=== PATIENT | female | born 1985 | race Caucasian/White ===

== ENCOUNTER 2017-09-22 05:30 | Emergency (ER) | payer MEDICAID ==
[~2017-09-22] VITALS: Ht 149.9 cm; Wt 63.7 kg
[2017-09-22 05:36] VITALS: BP 124/77
--- NOTE | 2017-09-22 05:39 | NUR ---
Patient ambulated to bed 3. RN evaluating patient at bedside.
--- NOTE | 2017-09-22 05:42 | NUR ---
Dr. Inman evaluating patient at bedside.
[2017-09-22] MEDS ORDERED: methylPREDNISolone SS 125 MG in WATER STERILE 2 ML IM ONE (05:45)
[2017-09-22] MEDS ORDERED: ALBUTEROL SULFATE/IPRATROPIU 3 ML SOL IH ONE (05:45)
--- NOTE | 2017-09-22 05:45 | NUR ---
32Y/F PT. PRESENTS TO ED WITH C/O SOB X 1 WK. PT. HX. ASTHMA, HAVING EPISODE OF SOB X 1 WK. AAO X4, AMBULATORY WITH STEDAY GAIT. RESIRATIONS ROOM AIR, LABORED, IRREGULAR, BL LUNG WHEEZES, O2 SAT 99%. VSS, ER MD MADE AWARE OF PT. STATUS.
--- NOTE | 2017-09-22 05:52 | NUR ---
Breathing treatment administered at bedside by respiratory therapist.
--- NOTE | 2017-09-22 06:07 | NUR ---
Dr. Inman re-evaluating patient at bedside.
[2017-09-22 06:19] VITALS: BP 115/70
--- NOTE | 2017-09-22 06:19 | NUR ---
Patient discharged with v/s stable. Written and verbal after care instructions given and explained. Patient alert, oriented and verbalized understanding of instructions. Ambulatory with steady gait. All questions addressed prior to discharge. ID band removed. Patient advised to follow up with PMD. Rx of ALBUTEROL 90 MCG/ACTUATION, PREDNISONE 20 MG, AZITHROMYCIN 500 MG, LEVALBUTEROL 1.25 MG/3 ML given. Patient educated on indication of medication including possible reaction and side effects. Opportunity to ask questions provided and answered.
== END 2017-09-22 06:19 | disposition home or self-care (01) ==
LOC: MED 05:30
DX: J45.901 Unspecified asthma with (acute) exacerbation (principal); J06.9 Acute upper respiratory infection, unspecified
CPT/HCPCS: 94640; 96372; 99283; J2930; J7620

== ENCOUNTER 2018-08-13 18:09 | Emergency (ER) | payer MEDICAID ==
[~2018-08-13] VITALS: Ht 149.9 cm; Wt 64.5 kg
[2018-08-13 18:15] VITALS: BP 112/71
--- NOTE | 2018-08-13 18:22 | NUR ---
PT AMBULATES TO BED 12
--- NOTE | 2018-08-13 18:23 | NUR ---
BIB SELF. C/O SOB TODAY RUN OUT OF INHALER; INCREASED WOB WITH ACCESSORY MUSCLE USE AND SLIGHT EXPIRATORY WHZ. DENIES N/V/D; SKIN IS PINK/WARM/DRY; AAOX4 WITH EVEN AND STEADY GAIT; LUNGS CLEAR BL; HR EVEN AND REGULAR; PT DENIES ANY FEVER, CP, OR COUGH AT THIS TIME; PATIENT STATES PAIN OF 0/10 AT THIS TIME; VSS; PATIENT POSITIONED FOR COMFORT; HOB ELEVATED; BEDRAILS UP X2; BED DOWN. ER MD MADE AWARE OF PT STATUS.
[2018-08-13] MEDS ORDERED: IPRATROPIUM 0.02% 0.5 MG/2.5 ML NEBU INH ONE (18:35)
[2018-08-13] MEDS ORDERED: predniSONE 20 MG TAB PO ONE (18:35)
[2018-08-13] MEDS ORDERED: ALBUTEROL 0.083% 2.5 MG/3 ML NEBU INH ONE (18:35)
--- NOTE | 2018-08-13 18:41 | NUR ---
RT AT BEDSIDE
--- NOTE | 2018-08-13 19:44 | NUR ---
Patient discharged with v/s stable. Written and verbal after care instructions given and explained. Patient alert, oriented and verbalized understanding of instructions. Ambulatory with steady gait. All questions addressed prior to discharge. ID band removed. Patient advised to follow up with PMD. Rx of ALBUTEROL, PREDNISONE, AND ALBUTEROL SULFATE SOLUTION WERE given. Patient educated on indication of medication including possible reaction and side effects. Opportunity to ask questions provided and answered.
[2018-08-13 19:45] VITALS: BP 137/71
== END 2018-08-13 19:44 | disposition home or self-care (01) ==
LOC: MED 18:09
DX: J45.901 Unspecified asthma with (acute) exacerbation (principal)
CPT/HCPCS: 94640; 99283; J7512; J7613; J7644

== ENCOUNTER 2019-01-19 10:34 | Emergency (ER) | payer MEDICAID ==
[~2019-01-19] VITALS: Ht 149.9 cm; Wt 62.8 kg
[2019-01-19 10:43] VITALS: BP 109/43
--- NOTE | 2019-01-19 10:53 | NUR ---
Patient ambulated to chair E. RN evaluating patient at bedside.
[2019-01-19] MEDS ORDERED: ALBUTEROL SULFATE/IPRATROPIU 3 ML SOL IH ONE (10:55)
--- NOTE | 2019-01-19 10:55 | NUR ---
PT BIB SELF C/O SOB started last night, wheezing noted to BILAT lobes. RT CALLED, PT DENIES N/V/D; SKIN IS INTACT, PINK/WARM/DRY; AAOX4, PERRL, WITH EVEN AND STEADY GAIT. BL PERIPHERAL PULSES PRESENT; BS ACTIVE X4, NO TENDERNESS TO PALPATION. PT DENIES ANY FEVER, CP AT THIS TIME; PT STATES 0/10 PAIN AT THIS TIME; VSS; PATIENT POSITIONED FOR COMFORT; HOB ELEVATED; BEDRAILS UP X2; BED DOWN.
--- NOTE | 2019-01-19 11:07 | NUR ---
Breathing treatment administered in OF by respiratory therapist.
[2019-01-19] MEDS ORDERED: predniSONE 20 MG TAB PO ONE (11:20)
--- NOTE | 2019-01-19 11:32 | NUR ---
Patient returned from XRAY, transferred to bed 2 for further care. RN evaluating patient at bedside.
[2019-01-19] MEDS ORDERED: ALBUTEROL 0.083% 2.5 MG/3 ML NEBU INH ONE (12:40)
[2019-01-19 15:45] VITALS: BP 119/79
--- NOTE | 2019-01-19 15:45 | NUR ---
Patient discharged with v/s stable. Written and verbal after care instructions given and explained. Patient alert, oriented and verbalized understanding of instructions. Ambulatory with steady gait. All questions addressed prior to discharge. ID band removed. Patient advised to follow up with PMD. Rx of ALBUTEROL 90MCG AND PREDNISONE 50MG given. Patient educated on indication of medication including possible reaction and side effects. Opportunity to ask questions provided and answered.
== END 2019-01-19 15:45 | disposition home or self-care (01) ==
LOC: MED 10:34
DX: J45.901 Unspecified asthma with (acute) exacerbation (principal)
CPT/HCPCS: 71046; 81002; 81025; 94640; 99284; J7512; J7613; J7620

== ENCOUNTER 2019-08-13 10:51 | Emergency (ER) | payer MEDICAID ==
[~2019-08-13] VITALS: Ht 148.6 cm; Wt 66.7 kg
[2019-08-13 11:00] VITALS: BP 93/67
--- NOTE | 2019-08-13 11:26 | NUR ---
C/O ASTHMA ATTACKS AT NIGHTTIME X 2 DAYS. RAN OUT OF ALBUTEROL AT HOME. ASTHMA ATTACKS TRIGGERED BY COLD AIR AND SMOKE- PT [place]. STATES ONLY MILD SOB NOW. NO WHEEZING NOTED. ALSO C/O COUGH WITH PRODUCTIVE SPUTUM CLEAR WHITE. PAIN IN THROAT WITH COUGHING. PATIENT STATES PAIN OF 4/10 AT THIS TIME.PATIENT POSITIONED FOR COMFORT; HOB ELEVATED; BEDRAILS UP X1; BED DOWN. ER MD MADE AWARE OF PT STATUS.
[2019-08-13] MEDS ORDERED: ALBUTEROL SULFATE/IPRATROPIU 3 ML SOL IH ONE (11:35)
[2019-08-13] MEDS ORDERED: DEXAMETHASONE 10 MG/ML VIAL IM ONE (11:35)
[2019-08-13 12:22] VITALS: BP 93/67
== END 2019-08-13 12:22 | disposition home or self-care (01) ==
LOC: MED 10:51
DX: J45.901 Unspecified asthma with (acute) exacerbation (principal)
CPT/HCPCS: 94640; 96372; 99283; J1100; J7620

== ENCOUNTER 2019-08-26 08:27 | Emergency (ER) | payer MEDICAID ==
[~2019-08-26] VITALS: Ht 149.9 cm; Wt 66.8 kg
[2019-08-26 08:30] VITALS: BP 143/83
--- NOTE | 2019-08-26 08:33 | NUR ---
Patient ambulated to bed 3. RN evaluating patient at bedside.
--- NOTE | 2019-08-26 08:34 | NUR ---
PT ARRIVED TO ED C/O SOB X 2 DAYS. LUNG SOUNDS ARE WHEEZING THROUGHOUT ON INSPIRATION AND EXPIRATION. DRY COUGH PRESENT. VSS. NO FEVER. A &O X 4. SOB OF BREATH WEHN SPEAKING SHORT SENTENCES. NO USE OF ACCESSORY MUSCLES. SPO2 97% RA. NKA. PMH: ASTHMA, SHINGLES.
[2019-08-26] MEDS ORDERED: methylPREDNISolone SS 125 MG/2 ML VIAL IM ONE (08:40)
[2019-08-26] MEDS ORDERED: ALBUTEROL SULFATE/IPRATROPIU 3 ML SOL IH ONE (08:40)
--- NOTE | 2019-08-26 08:43 | NUR ---
Breathing treatment administered at bedside by respiratory therapist.
--- NOTE | 2019-08-26 08:49 | NUR ---
RT AT BEDSIDE.
--- NOTE | 2019-08-26 09:01 | NUR ---
REEVAL FROM BREATHING TREATMENT. LUNG SOUNDS CLEAR THROUGHOUT.
[2019-08-26 09:20] VITALS: BP 143/83
--- NOTE | 2019-08-26 09:20 | NUR ---
Patient discharged with v/s stable. Written and verbal after care instructions given and explained. Patient alert, oriented and verbalized understanding of instructions. Ambulatory with steady gait. All questions addressed prior to discharge. ID band removed. Patient advised to follow up with PMD. Rx of ALBUTEROL, AND PREDNISONE given. Patient educated on indication of medication including possible reaction and side effects. Opportunity to ask questions provided and answered.
== END 2019-08-26 09:20 | disposition home or self-care (01) ==
LOC: MED 08:27
DX: J45.901 Unspecified asthma with (acute) exacerbation (principal)
CPT/HCPCS: 94640; 96372; 99283; J2930; J7620

== ENCOUNTER 2019-11-10 16:39 | Emergency (ER) | payer MEDICAID ==
[~2019-11-10] VITALS: Ht 149.9 cm; Wt 67.1 kg
[2019-11-10 16:45] VITALS: BP 119/73
--- NOTE | 2019-11-10 16:49 | NUR ---
PT TO BED 11 WITH STEADY GAIT
--- NOTE | 2019-11-10 17:00 | NUR ---
34/F PRESENTS TO ED, C/O PAIN ON R CHEEK/R SIDE OF LOWER FACE, SINCE YESTERDAY AFTER EATING. NO OBVIOUS SWELLING NOTED. MILD CAVITIES NOTED. DENIES FEVER/CHILLS, N/V. PT AWAKE AND ALERT, SKIN NORMAL COLOR WARM AND DRY, RR EVEN AND UNLABORED. HX ASTHMA RX INHALERS OTC BENADRYL AND OTC PAIN MED, WITHOUT RELIEF
[2019-11-10] MEDS ORDERED: KETOROLAC 30 MG/ML VIAL IM ONE (17:10)
[2019-11-10 17:33] VITALS: BP 119/73
--- NOTE | 2019-11-10 17:33 | NUR ---
Patient discharged with v/s stable. Written and verbal after care instructions given and explained. Patient alert, oriented and verbalized understanding of instructions. Ambulatory with steady gait. All questions addressed prior to discharge. ID band removed. Patient advised to follow up with PMD. Rx of PREDISONE, NAPROXEN given. Patient educated on indication of medication including possible reaction and side effects. Opportunity to ask questions provided and answered.
== END 2019-11-10 17:33 | disposition home or self-care (01) ==
LOC: MED 16:39
DX: M26.621 Arthralgia of right temporomandibular joint (principal); J45.909 Unspecified asthma, uncomplicated
CPT/HCPCS: 96372; 99283; J1885

== ENCOUNTER 2020-01-26 17:31 | Emergency (ER) | payer MEDICAID ==
[~2020-01-26] VITALS: Ht 149.9 cm; Wt 65.8 kg
[2020-01-26 17:38] VITALS: BP 124/85
--- NOTE | 2020-01-26 17:40 | NUR ---
PT EVALUATED BY PHOEBE HARRIS IN TENT, STATES IT IS OK TO PLACE IN BED 11. PT AMBULATED TO BED 11
--- NOTE | 2020-01-26 17:50 | NUR ---
C/O SOB X2 DAYS. PT REPORTS HX OF ASTHMA AND RAN OUT OF NEBULIZER SOLUTION AT HOME. BREATHING IS SLIGHTLY LABORED AND DEEP. LUNG SOUNDS CAEBL, O2 SAT 96% RA. BED IN LOW POSITION, SIDE RAIL UP X1.
[2020-01-26] MEDS ORDERED: WATER STERILE 10 ML MC ONE (18:14)
[2020-01-26] MEDS ORDERED: methylPREDNISolone SS 125 MG/2 ML VIAL ONE (18:14)
[2020-01-26] MEDS: methylPREDNISolone SS 125 MG in WATER STERILE 2 ML IM ONE (18:21)
--- NOTE | 2020-01-26 18:53 | NUR ---
Patient discharged with v/s stable. Written and verbal after care instructions given and explained. Patient alert, oriented and verbalized understanding of instructions. Ambulatory with steady gait. All questions addressed prior to discharge. ID band removed. Patient advised to follow up with PMD. Rx of ALBUTEROL SOLUTION, VENTOLIN, AND PREDNISONE given. Patient educated on indication of medication including possible reaction and side effects. Opportunity to ask questions provided and answered.
[2020-01-26 18:54] VITALS: BP 124/85
== END 2020-01-26 18:54 | disposition home or self-care (01) ==
LOC: MED 17:31
DX: J98.01 Acute bronchospasm (principal); J45.909 Unspecified asthma, uncomplicated
CPT/HCPCS: 96372; 99283; J2930

== ENCOUNTER 2020-08-20 17:41 | Emergency (ER) | payer MEDICAID ==
[~2020-08-20] VITALS: Ht 149.9 cm; Wt 63.5 kg
[2020-08-20 17:48] VITALS: BP 133/88
--- NOTE | 2020-08-20 17:57 | NUR ---
Patient ambulated to bed 9. RN evaluating patient at bedside.
--- NOTE | 2020-08-20 18:00 | NUR ---
35 Y/O FEMALE PRESENTS TO ED C/C SOB. PT STATES SHE HAS BEEN HAVING SOB AND WHEEZING X 2DAYS. BILATERAL LOBE WEEZING, INCREASED WOB, SYMETRICAL CHEST RISE AND FALL. CAP REFILL 2 SEC, NORMAL HEART RATE/RHYTHM. PT STATES SHE RAN OUT OF MEDICINE 2 DAYS AGO. COVID TESTED 1 MONTH AGO, RESULTS NEGATIVE. PMH: ASTHMA NKDA
[2020-08-20] MEDS ORDERED: ALBUTEROL 0.083% 2.5 MG/3 ML NEBU INH STA (18:01)
[2020-08-20] MEDS ORDERED: DEXAMETHASONE 10 MG/ML VIAL PO ONE (18:05)
[2020-08-20 19:02] VITALS: BP 133/88
--- NOTE | 2020-08-20 19:02 | NUR ---
Patient discharged with v/s stable. Written and verbal after care instructions given and explained. Patient alert, oriented and verbalized understanding of instructions. Ambulatory with steady gait. All questions addressed prior to discharge. ID band removed. Patient advised to follow up with PMD. Rx of PREDNISONE, ALBUTEROL SULFATE SOLUTION, ALBUTEROL AEROSOL given. Patient educated on indication of medication including possible reaction and side effects. Opportunity to ask questions provided and answered.
== END 2020-08-20 19:02 | disposition home or self-care (01) ==
LOC: MED 17:41
DX: J45.901 Unspecified asthma with (acute) exacerbation (principal)
CPT/HCPCS: 99283; J1100; J7613; 94640

== ENCOUNTER 2021-03-22 11:22 | Emergency (ER) | payer MEDICAID ==
[~2021-03-22] VITALS: Ht 149.9 cm; Wt 68.5 kg
[2021-03-22 11:28] VITALS: BP 138/92
--- NOTE | 2021-03-22 11:34 | NUR ---
35 Y/O FEMALE C/O LEFT EYE SWELLING AND REDNESS X1DAY. PT STATES SHE HAS ITCHINESS, DRYNESS, AND GREEN AND YELLOW DISCHARGE. PT STATES PAIN 5/10 TO LEFT EYE. DENIES TRAUMA/INJURY TO AREA. DENIES FEVER, CHILLS. ERMD MADE AWARE OF PT STATUS. DENIES PMH NKA
[2021-03-22] MEDS ORDERED: POLY10SO3 OP (13:08)
[2021-03-22] MEDS ORDERED: ALBU0.0912 INH (13:18)
[2021-03-22 13:25] VITALS: BP 138/92
--- NOTE | 2021-03-22 13:25 | NUR ---
Patient discharged with v/s stable. Written and verbal after care instructions about bacterial conjunctivitis given and explained. Patient alert, oriented and verbalized understanding of instructions. Ambulatory with steady gait. All questions addressed prior to discharge. ID band removed. Patient advised to follow up with PMD. Rx of polymyxin B Tmp eye drops given. Patient educated on indication of medication including possible reaction and side effects. Opportunity to ask questions provided and answered.
== END 2021-03-22 13:25 | disposition home or self-care (01) ==
LOC: MED 11:22
DX: H10.9 Unspecified conjunctivitis (principal); Q80.9 Congenital ichthyosis, unspecified; J45.909 Unspecified asthma, uncomplicated; Z79.899 Other long term (current) drug therapy
CPT/HCPCS: 99283

== ENCOUNTER 2021-08-07 16:36 | Emergency (ER) | payer MEDICAID ==
[~2021-08-07] VITALS: Ht 162.6 cm; Wt 68.9 kg
[~2021-08-07 16:36] MED LIST: ALBU0.0912 INH; POLY10SO3 OP
[2021-08-07 17:01] VITALS: BP 122/56
[2021-08-07] MEDS: ALBUTEROL 0.083% 2.5 MG/3 ML NEBU INH ONE (17:07)
[2021-08-07] MEDS: ALBUTEROL SULFATE/IPRATROPIU 3 ML SOL IH ONE (17:07)
--- NOTE | 2021-08-07 17:08 | NUR ---
[facility] GIVEN ORDERED ENCOURAGED PATIENT FOR INTERMITTENT DEEP BREATHING AND COUGH
--- NOTE | 2021-08-07 17:10 | NUR ---
Patient ambulated to bed 03 with steady/ even gait.
[2021-08-07] MEDS: predniSONE 20 MG TAB PO ONE (17:13)
--- NOTE | 2021-08-07 17:15 | NUR ---
36 y/o F BIB self from home c/o SOB x 2 days. Patient reports +cough and wheezes. Patient states taking nebulizer treatment and Albuterol inhaler without relief to symptoms. Lung sounds rales and wheezes. SpO2 99% on room air. Patient denies chest pain, fever, chills, nausea, vomiting, diarrhea. Bed locked in lowest position, side rails x 1, call light in reach. [facility]: NEBULIZER AND ALBUTEROL NKA
--- NOTE | 2021-08-07 17:52 | NUR ---
Patient reports she feels better after breathing treatment. Requesting medication refill. Dr. Díaz made aware.
[2021-08-07] MEDS ORDERED: ALBUTEROL SULFATE/IPRATROPIU 3 ML SOL IH ONE (18:10)
--- NOTE | 2021-08-07 18:15 | NUR ---
PHOEBE Adams is reevaluating patient at bedside
[2021-08-07] MEDS ORDERED: PRON INH (18:21)
[2021-08-07] MEDS ORDERED: PRED20TA5 PO (18:21)
[2021-08-07] MEDS ORDERED: ALBU0.0912 IH (18:21)
--- NOTE | 2021-08-07 18:27 | NUR ---
Patient discharged with v/s stable. Written and verbal after care instructions given and explained. Patient alert, oriented and verbalized understanding of instructions. Ambulatory with steady gait. All questions addressed prior to discharge. ID band removed. Patient advised to follow up with PMD. Rx of Albuterol Sulfate MDI, Prednisone, Albuterol Sulfate (NEB*) given. Patient educated on indication of medication including possible reaction and side effects. Opportunity to ask questions provided and answered.
== END 2021-08-07 18:27 | disposition home or self-care (01) ==
LOC: MED 16:36
DX: J45.909 Unspecified asthma, uncomplicated (principal); Z79.899 Other long term (current) drug therapy
CPT/HCPCS: 94640; 99283; J7512; J7613

== ENCOUNTER 2021-10-26 14:31 | Emergency (ER) | payer MEDICAID ==
[~2021-10-26] VITALS: Ht 152.4 cm; Wt 69.4 kg
[~2021-10-26 14:31] MED LIST changes: +ALBU0.0912 IH; +PRED20TA5 PO; +PRON INH
[2021-10-26 14:38] VITALS: BP 129/80
[2021-10-26] MEDS ORDERED: ALBUTEROL HFA MDI 90 MCG/ACTUATION 8 GM INH ONE (14:50)
[2021-10-26] MEDS ORDERED: predniSONE 20 MG TAB PO ONE (14:50)
[2021-10-26] MEDS ORDERED: ALBU0.0912 INH ×2 (14:58→19:04)
[2021-10-26] MEDS ORDERED: PRED20TA5 PO ×2 (14:58→19:04)
--- NOTE | 2021-10-26 14:58 | NUR ---
36/F BIB SELF WITH C/O ASTHMA. STATES THE LAST TWO DAYS SYMPTOMS SHE HAS HAD AN INCREASINGLY MORE DIFFICULT TIME CATCHING HER BREATH AND BREATHING COMFORTABLY. STATES SHE FEELS SYMPTOMS HAVE WORSENED, REPORTS USING HER INHALER WITH NO RELIEF. DENIES CP, FEVERS.
--- NOTE | 2021-10-26 16:11 | NUR ---
RT ATTEMPTED TO CALL PT FOR BREATHING TREATMENT, NO ANSWER IN LOBBY/TENT
[2021-10-26 19:02] VITALS: BP 134/83
--- NOTE | 2021-10-26 19:02 | NUR ---
Patient discharged with v/s stable. Written and verbal after care instructions ABOUT ASTHMA given and explained. Patient alert, oriented and verbalized understanding of instructions. Ambulatory with steady gait. All questions addressed prior to discharge. ID band removed. Patient advised to follow up with PMD. Rx of PROVENTIL AND DELTASONE given. Patient educated on indication of medication including possible reaction and side effects. Opportunity to ask questions provided and answered.
== END 2021-10-26 19:04 | disposition home or self-care (01) ==
LOC: MED 14:31
DX: J45.901 Unspecified asthma with (acute) exacerbation (principal); Z79.899 Other long term (current) drug therapy
CPT/HCPCS: 94664; 99283; J7512

== ENCOUNTER 2022-07-07 17:57 | Emergency (ER) | payer MEDICAID ==
[~2022-07-07] VITALS: Ht 149.9 cm; Wt 68.0 kg
[~2022-07-07 17:57] MED LIST changes: -ALBU0.0912 IH; -POLY10SO3 OP; -PRON INH
[2022-07-07 18:03] VITALS: BP 154/113
--- NOTE | 2022-07-07 18:11 | NUR ---
Pt noted with inspiratory/expiratory wheezing. RT called to bedside and Dr Díaz made aware
--- NOTE | 2022-07-07 18:13 | NUR ---
36 y/o Female BIB self for C/O SOB x 2 days. Pt states she has been unable to catch her breath. Pt noted AOX4, GCS15 resp even andlabored. Wheezing noted insp and exp bilat. Non-productive cough noted. Pmhx: Asthma NKA Home meds: albuterol
[2022-07-07] MEDS ORDERED: ALBUTEROL 0.083% 2.5 MG/3 ML NEBU INH ONE (18:15)
[2022-07-07] MEDS ORDERED: ALBUTEROL SULFATE/IPRATROPIU 3 ML SOL IH ONE (18:15)
[2022-07-07] MEDS ORDERED: predniSONE 20 MG TAB PO ONE (18:15)
--- NOTE | 2022-07-07 18:59 | NUR ---
Pt with even and unlabored resp. No wheezing noted bilat.
[2022-07-07] MEDS ORDERED: PRED20TA5 PO (19:11)
--- NOTE | 2022-07-07 19:16 | NUR ---
Pt report given to IVANA [place]. Transfer of care at this time.
[2022-07-07] MEDS ORDERED: ALBU0.0912 INH (19:21)
--- NOTE | 2022-07-07 19:22 | NUR ---
d/c with VSS. d/c education given. opportunity to ask questions given and answered. rx of prednisone and albuterol given.
== END 2022-07-07 19:22 | disposition home or self-care (01) ==
LOC: MED 17:57
DX: R05.9 Cough, unspecified (principal); R06.02 Shortness of breath; Z53.21 Procedure and treatment not carried out due to patient leaving prior to being seen by health care provider
CPT/HCPCS: 94640; 99283; J7512; J7613

== ENCOUNTER 2022-09-10 10:55 | Emergency (ER) | payer MEDICAID ==
[~2022-09-10] VITALS: Ht 149.9 cm; Wt 68.0 kg
[2022-09-10 11:40] VITALS: BP 132/69
--- NOTE | 2022-09-10 12:00 | NUR ---
37/F PRESENTS TO ED WITH C/O RIGHT WRIST PAIN X3 DAYS, DENIES INJURY OR TRAUMA STATES SHE LIFTS HEAVY BOXES AT WORK, REPORTS TAKING ADVIL WITH NO RELIEF.
[2022-09-10] MEDS ORDERED: NAPR-1704 PO (14:07)
[2022-09-10] MEDS ORDERED: ALBU0.0912 INH (14:10)
[2022-09-10] MEDS ORDERED: PRED20TA5 PO (14:10)
--- NOTE | 2022-09-10 14:17 | NUR ---
PT PLACED IN RIGHT VELCRO VOLAR SPLINT, CMS WNL BEFORE AND AFTER.
--- NOTE | 2022-09-10 14:18 | NUR ---
Patient discharged with v/s stable. Written and verbal after care instructions ABOUT WRIST PAIN given and explained. Patient alert, oriented and verbalized understanding of instructions. Ambulatory with steady gait. All questions addressed prior to discharge. ID band removed. Patient advised to follow up with PMD. Rx of PROVENTIL, NAPROSYN, DELTASON given. Patient educated on indication of medication including possible reaction and side effects. Opportunity to ask questions provided and answered.
== END 2022-09-10 14:18 | disposition home or self-care (01) ==
LOC: MED 10:55
DX: M77.8 Other enthesopathies, not elsewhere classified (principal); J45.909 Unspecified asthma, uncomplicated; Z76.0 Encounter for issue of repeat prescription; Z79.899 Other long term (current) drug therapy
CPT/HCPCS: 73110; 99283

== ENCOUNTER 2023-08-02 17:13 | Emergency (ER) | payer MEDICAID ==
[~2023-08-02] VITALS: Ht 149.9 cm; Wt 65.8 kg
[~2023-08-02 17:13] MED LIST changes: +NAPR-1704 PO
[2023-08-02 17:40] VITALS: BP 121/78; PULSE 69; RESP 18; TEMP 98.3; O2SAT 98
[2023-08-02] MEDS ORDERED: KETOROLAC 60 MG/2 ML VIAL IM ONE (18:10)
[2023-08-02] MEDS ORDERED: IBUP-2213 PO (18:33)
[2023-08-02 18:48] VITALS: BP 121/78; PULSE 69; RESP 18; TEMP 98.3; O2SAT 98
== END 2023-08-02 18:45 | disposition home or self-care (01) ==
LOC: MED 17:13
DX: S61.210A Laceration without foreign body of right index finger without damage to nail, initial encounter (principal); X58.XXXA Exposure to other specified factors, initial encounter; Y93.89 Activity, other specified; Y92.89 Other specified places as the place of occurrence of the external cause; Y99.8 Other external cause status
CPT/HCPCS: 12001; 90471; 90715; 96372; 99284; J1885

== ENCOUNTER 2023-12-25 18:38 | Emergency (ER) | payer MEDICAID, OTHER ==
[~2023-12-25] VITALS: Ht 149.9 cm; Wt 63.5 kg
[~2023-12-25 18:38] MED LIST changes: +IBUP-2213 PO
[2023-12-25 18:48] VITALS: BP 134/52; PULSE 84; RESP 20; TEMP 98.4; O2SAT 98
[2023-12-25 19:35] VITALS: PULSE 84; RESP 18; O2SAT 98
[2023-12-25] MEDS: IPRATROPIUM 0.02% 0.5 MG/2.5 ML NEBU INH ONE (19:35)
[2023-12-25] MEDS: ALBUTEROL 0.083% 2.5 MG/3 ML NEBU INH ONE (19:35)
[2023-12-25 20:00] LABS: APPEARANCE,URINE CLEAR (CLEAR); BILIRUBIN,URINE NEGATIVE (NEGATIVE); BLOOD, URINE TRACE-I (NEGATIVE); COLOR,URINE YELLOW (YELLOW); LEUKOCYTE ESTERASE ,URINE NEGATIVE (NEGATIVE); NITRITE, URINE NEGATIVE (NEGATIVE); PROTEIN,URINE NEGATIVE (NEGATIVE); UGLUCOSE NEGATIVE (NEGATIVE); UROBILINOGEN,URINE 0.2 EU/dL (0.2 - 1)
[2023-12-25 20:01] LABS: FLU A ANTIGEN negative (NEGATIVE); FLU B ANTIGEN NEGATIVE (NEGATIVE)
[2023-12-25 20:01] LABS: BACTERIA,URINE None Seen /HPF (None Seen); MUCUS,URINE None Seen /LPF (None Seen); RBC,URINE 0-5 /HPF (0-5); SQUAMOUS EPITHELIAL CELL,UR 4-10 (MOD) /LPF (0-3 (FEW)); TRICHOMONAS,URINE None Seen /HPF (None Seen); WBC,URINE 0-5 /HPF (0-5); YEAST,URINE None Seen /HPF (None Seen)
[2023-12-25 20:52] LABS: BASOPHILS # (AUTO) 0.1 K/uL (0.00-0.22); BASOPHILS % (AUTO) 1.2 % (0.0-2.0); EOSINOPHILS # (AUTO) 1.5 K/uL (0-0.4); EOSINOPHILS % (AUTO) 12.5 % (0.0-4.0); HEMATOCRIT 39.7 % (36-48); HEMOGLOBIN 13.6 g/dL (12.0-16.0); LYMPHOCYTES # (AUTO) 3.6 K/uL (2.5-16.5); LYMPHOCYTES % (AUTO) 29.7 % (20.5-51.1); MEAN CORPUSCULAR HEMOGLOBIN 32 pg (27-31); MEAN CORPUSCULAR HGB CONC 34 g/dL (33-37); MEAN CORPUSCULAR VOLUME 94.5 fL (80-94); MONOCYTES # (AUTO) 0.9 K/uL (0.8-1.0); MONOCYTES % (AUTO) 7.4 % (1.7-9.3); NEUTROPHILS % (AUTO) 49.2 % (42.2-75.2); PLATELET COUNT (AUTO) 345 K/uL (140-450); RED CELL DISTRIBUTION WIDTH 14.7 % (11.6-13.7); WHITE BLOOD COUNT (AUTO) 12.2 K/uL (4.8-10.8)
[2023-12-25] MEDS ORDERED: ALBU0.0912 IH (21:39)
[2023-12-25] MEDS ORDERED: NEBU-109 MC (21:39)
[2023-12-25 21:50] VITALS: BP 125/74; PULSE 88; RESP 18; O2SAT 98
== END 2023-12-25 21:49 | disposition home or self-care (01) ==
LOC: MED 18:38
DX: O99.511 Diseases of the respiratory system complicating pregnancy, first trimester (principal); J45.901 Unspecified asthma with (acute) exacerbation; O46.91 Antepartum hemorrhage, unspecified, first trimester; Z20.822 Contact with and (suspected) exposure to COVID-19; Z3A.08 8 weeks gestation of pregnancy; Z79.899 Other long term (current) drug therapy
CPT/HCPCS: 36415; 76817; 81001; 81025; 84702; 85025; 86900; 86901; 87426; 87804; 94640; 99284; J7613; J7644

== ENCOUNTER 2023-12-31 17:50 | Emergency (ER) | payer OTHER ==
[~2023-12-31] VITALS: Ht 149.9 cm; Wt 65.8 kg
[~2023-12-31 17:50] MED LIST changes: +ALBU0.0912 IH; +NEBU-109 MC
[2023-12-31 18:10] VITALS: BP 140/81; PULSE 83; RESP 22; TEMP 98.1; O2SAT 99
[2023-12-31] MEDS: NACL 0.9% 1,000 ML IV ONE (18:59)
[2023-12-31] MEDS: MORPHINE SULFATE 4 MG/ML SYR IVP ONE ×2 (19:01→20:38)
[2023-12-31] MEDS: ONDANSETRON 4 MG/2 ML VIAL IVP ONE (19:01)
[2023-12-31 19:16] LABS: BASOPHILS # (AUTO) 0.1 K/uL (0.00-0.22); BASOPHILS % (AUTO) 1.1 % (0.0-2.0); EOSINOPHILS # (AUTO) 0.4 K/uL (0-0.4); EOSINOPHILS % (AUTO) 4.9 % (0.0-4.0); HEMATOCRIT 36.8 % (36-48); HEMOGLOBIN 12.8 g/dL (12.0-16.0); LYMPHOCYTES # (AUTO) 2.5 K/uL (2.5-16.5); LYMPHOCYTES % (AUTO) 27.5 % (20.5-51.1); MEAN CORPUSCULAR HEMOGLOBIN 33 pg (27-31); MEAN CORPUSCULAR HGB CONC 35 g/dL (33-37); MEAN CORPUSCULAR VOLUME 94.5 fL (80-94); MONOCYTES # (AUTO) 0.4 K/uL (0.8-1.0); MONOCYTES % (AUTO) 4.7 % (1.7-9.3); NEUTROPHILS # (AUTO) 5.6 K/uL (1.8-7.7); NEUTROPHILS % (AUTO) 61.8 % (42.2-75.2); PLATELET COUNT (AUTO) 354 K/uL (140-450); RED CELL DISTRIBUTION WIDTH 14.3 % (11.6-13.7)
[2023-12-31 19:33] LABS: APPEARANCE,URINE CLEAR (CLEAR); BILIRUBIN,URINE NEGATIVE (NEGATIVE); BLOOD, URINE 3+ (NEGATIVE); COLOR,URINE YELLOW (YELLOW); LEUKOCYTE ESTERASE ,URINE NEGATIVE (NEGATIVE); NITRITE, URINE NEGATIVE (NEGATIVE); PROTEIN,URINE NEGATIVE (NEGATIVE); UGLUCOSE NEGATIVE (NEGATIVE); UROBILINOGEN,URINE 0.2 EU/dL (0.2 - 1)
[2023-12-31 19:45] LABS: BACTERIA,URINE FEW /HPF (None Seen); SQUAMOUS EPITHELIAL CELL,UR 4-10 (MOD) /LPF (0-3 (FEW)); WBC,URINE 0-5 /HPF (0-5)
[2023-12-31 19:49] VITALS: O2SAT 99
[2023-12-31] MEDS ORDERED: ACETAMINOPHEN EXTRA STRENGTH 500 MG TAB PO ONE (20:30)
[2023-12-31] MEDS: MISOPROSTOL 100 MCG TAB PO ONE (21:25)
[2023-12-31 22:07] VITALS: BP 128/63; PULSE 79; RESP 18; TEMP 98.1; O2SAT 99
== END 2023-12-31 22:07 | disposition left against medical advice (07) ==
LOC: MED 17:50
DX: O46.91 Antepartum hemorrhage, unspecified, first trimester (principal); O99.511 Diseases of the respiratory system complicating pregnancy, first trimester; J45.909 Unspecified asthma, uncomplicated; Z3A.10 10 weeks gestation of pregnancy; Z79.899 Other long term (current) drug therapy
CPT/HCPCS: 36415; 76817; 81001; 81025; 84702; 85025; 86900; 86901; 96361; 96374; 96375; 96376; 99285; J2270; J2405; J7030; Q0092